=== PATIENT | male | born 1955 | race Caucasian/White ===

== ENCOUNTER → 2018-07-28 | Outpatient (CLI) | payer BC ==
[~2018-07-28] VITALS: Ht 190.5 cm; Wt 108.9 kg
[~2018-07-28] MED LIST: IMDUR 30 MG TAB30 M1 PO; LIPITOR80 MG PO; LOPRESSOR50 PO; SYNTHROID112 MC1 PO; TRAZODONE HCL50 MG PO; XANAX 0.25 MG0.25 MG PO
--- NOTE | ~2018-07-28 | CATHLAB ---
[facility] [address] [place] [address] INVASIVE PROCEDURE REPORT Name: DAVIN FRANZ Room #: [facility] [id number] Admission: 07/28/18 Attend Phys: Jose More Discharge: Date of : 57 Date of Service: 07/31/18 1656 Report #: [id number] THIS REPORT FOR: //name// APPROVED REPORT Study performed: 07/28/2018 12:55:31 Patient Details Patient Status: Out-Patient Room #: The patient is a 62 year-old male Event Personnel Jose Mcqueen [employer]ra[employer]el[employer], Jacob Curtis RN, Mary Anne Irene Sandifer, David Monitor Procedures Performed Art Access - R femoral artery* 57399 Initial Mod Sed Same Phys/QHP Gr5y [id number] Left Heart Cath w/or w/o Coronaries [id number] C Hemostasis w/ Mynx supervision of conscious sedation Indication Dyspnea, Chest pain Procedure Narrative The patient was brought electively to the Cardiac Catheterization Laboratory and was prepped and draped in a sterile manner. The Right Groin^ was infiltrated with 1% Lidocaine subcutaneous anesthesia. A PINNACLE 4FR Sheath #[id number] sheath was inserted into the RFA^. Coronary angiography was performed using coronary diagnostic catheters. The right coronary system was accessed and visualized with a JR 4 catheter. The left coronary system was accessed and visualized with a JL 4 catheter. The left ventricle was accessed and visualized with a JR 4 catheter. Left ventricular/Aortic Valve gradient assessed via catheter pullback. Left ventriculogram was performed in MARTÍNEZ projection. Closure device was deployed with a 5 Fr Mynx. The patient tolerated the procedure well and there were no complications associated with the procedure. There was no hematoma. Intraoperative Conscious Sedation Sedation start time: 13:48 Case end Time: 14:13 Fluoro Time: 2.00 minutes Dose: DAP 3035.00 cGycm2 425 mGy [facility] [place] [address] INVASIVE PROCEDURE REPORT Name: DAVIN FRANZ Room #: REG [facility]#: [id number] Admission: 07/28/18 Attend Phys: Jose More Discharge: Date of : 57 Date of Service: 07/31/18 1656 Report #: [id number] Contrast Type and Amount: Omnipaque 55 ml Coronary Angiography The patient's coronary anatomy is right dominant. Diagnostic Cath Left Main Left main is of normal origin and caliber bifurcates left anterior descending left circumflex is free of high-grade disease LAD Small moderate caliber vessel which rapidly tapers as it courses in the anterior interventricular sulcus terminating as a bifurcating vessel at the apex. In the proximal portion of the mid LAD there is a narrowing that appears to be a myocardial bridge which is a dynamic lesion noted. Prior to this first diagonal first septal perforators are free of high-grade disease. Subsequent to this the vessel rapidly tapers as it reaches the apex Diagonal 1 Small-caliber vessel without significant high-grade lesions noted Circumflex Small to moderate caliber vessel without significant obstructive lesions noted to the first marginal branch the vessel terminates in the posterior aspect of the interventricular sulcus OM1 Moderate caliber vessel which trifurcates into smaller lateral wall branches all of which are free of high-grade disease. Right Coronary Large-caliber vessel of normal origin courses in the AV groove director small marginal branches. It is free of high-grade disease as it courses posteriorly to the crux of the heart gives her through a posterior descending artery and it terminates is small has had a small to moderate caliber bifurcating posterior wall branches R PDA Moderate caliber vessel free of high-grade disease Left Ventriculography Left Ventriculography was not performed. Hemodynamics The aortic pressure is 131/79 mmHg with a mean of 104 mmHg. The left ventricular pressure is 136/20 mmHg with a mean of mmHg. The left ventricular end diastolic pressure is 27 mmHg. Conclusion 1. 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 Normal hemodynamics Recommendations [facility] [address] [place] [address] INVASIVE PROCEDURE REPORT Name: DAVIN FRANZ Room #: REG CL Alonso#: [id number] Admission: 07/28/18 Attend Phys: Jose More Discharge: Date of : 57 Date of Service: 07/31/18 1656 Report #: [id number] Cardiac Risk Reduction Program [facility] <ELECTRONICALLY SIGNED> By: Jose Mcqueen MD 07/31/181655 55 55 Jose Mcqueen MD /INF
--- NOTE | ~2018-07-28 | EKG ---
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1955 Requested By: Jose Mcqueen Order Number: [id number] MD: Bryon Chiang Measurements Intervals [place] Rate: 61 P: 40 SC: 215 QRS: 4 QRSD: 98 T: 17 QT: 415 QTc: 418 Interpretive Statements Sinus rhythm Ventricular premature complexes Borderline prolonged SC interval No previous ECG available for comparison Electronically Signed On 07-28-2018 8:50:28 COMPUTER NETWORK SUPPORT SPECIALIST by Bryon Chiang [email or web address] <ELECTRONICALLY SIGNED> By: Bryon Chiang MD, [facility] 07/28/18 0850 [id number] [id number] Bryon Chiang MD, FACC /EPI
--- NOTE | ~2018-07-28 | H ---
[facility] [place] [address] HISTORY AND PHYSICAL Name: DAVIN FRANZ Room #: REG [facility] [id number] Admission: 07/28/18 Attend Phys: Jose Mcqueen Discharge: Date of : 57 Report #: [id number] THIS REPORT FOR: //name// CC: Jose Mcqueen Kike Stubbs DATE OF SERVICE: 07/28/2018 HISTORY OF PRESENT ILLNESS: A 62-year-old gentleman seen in the office for chest pain. The patient had been having chest discomfort for several months, having undergone a perfusion scan which was deemed low risk. The patient at that point in time, though, had persistent chest discomfort, exertional in nature, substernal, radiating to the arm, the back, and the jaw. This is relieved by rest. While in the office, he described having some left arm discomfort for which sublingual nitroglycerin resolved it completely. He denied any significant orthopnea, PND, syncope or near syncope. He had been on GI regimen previously as well as blood pressure control without any improvement. The patient is now currently quite concerned because the symptoms have progressed to the point of even with minimal activity, he develops a discomfort. PHYSICAL EXAMINATION: GENERAL: Shows a well-developed white male, resting comfortably, in no acute distress. VITAL SIGNS: Noted and reviewed in the chart. HEENT: Normocephalic, atraumatic. Pupils are equal, round, reactive to light and accommodation. Extraocular muscles are intact. Sclerae and conjunctivae are anicteric. NECK: JVD is normal. Carotid upstrokes are bilaterally symmetrical. No bruits are heard. No thyromegaly. No lymphadenopathy. LUNGS: Clear to auscultation. No wheezes, rhonchi or crackles. No CVA tenderness. CARDIAC: Demonstrates a regular rhythm. Normal first and second heart sounds. No ventricular or atrial gallops, no rubs noted. No murmurs. No lifts or heaves, PMI normal. ABDOMEN: Soft, nontender, nondistended. Normal bowel sounds. EXTREMITIES: Without cyanosis, clubbing or edema. Distal pulses are intact. DTR symmetrical. NEUROLOGIC: Cranial nerves 2-12 are grossly normal and symmetrical. PSYCHIATRIC: Alert, oriented with normal affect. SKIN: Warm and dry. IMPRESSION: Exertional chest pain in an individual that has risk factors. Even though he has a negative perfusion scan, balance ischemia can be present as well as a false negative rate. I am going to proceed to cardiac catheterization in view of his risk factors, progression of symptomatology for diagnosis. The risks, complications, and alternatives of catheterization, angioplasty, [address] [address] HISTORY AND PHYSICAL Name: DAVIN FRANZ Room #: REG TERRI Gupta#: [id number] Admission: 07/28/18 Attend Phys: Jose Mcqueen Discharge: Date of : 57 Report #: [id number] conscious sedation have been discussed with the patient. He voices understanding and wishes to proceed. By: [id number] Jose Mcqueen MD /nt
--- NOTE | ~2018-07-28 | EKG ---
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 : 1955 Requested By: Jose Mcqueen Order Number: [id number] MD: Carlos Arredondo Measurements Intervals [place] Rate: 79 P: 34 OH: 215 QRS: 12 QRSD: 107 T: 34 QT: 408 QTc: 468 Interpretive Statements Sinus rhythm Ventricular premature complex Borderline prolonged [place] interval Borderline low voltage, extremity leads Abnormal R-wave progression, early transition Baseline wander in lead(s) V3 Compared to ECG 07/28/2018 08:46:34 No significant changes Electronically Signed On 07-28-2018 15:46:35 INTERNAL RECRUITER by Carlos Arredondo [email or web address] <ELECTRONICALLY SIGNED> By: Carlos Arredondo MD 07/28/18 1546 1102 1102 Carlos Arredondo MD /EPI
[2018-07-28 07:43] VITALS: BP 140/87
[2018-07-28 07:45] LABS: HEMATOCRIT 41.4 % (42.0-52.0); HEMOGLOBIN 14.6 gm/dL (14.0-18.0); MCH 30.8 pg (26.0-34.0); MCHC 35.4 g/dL (28.0-37.0); MCV 87.2 fL (80.0-100.0); RBC 4.74 mil/uL (4.50-6.00); RDW 13.5 % (10.5-14.5); WBC 6.2 thou/uL (4.0-11.0)
[2018-07-28 07:53] LABS: CALCIUM 9.8 mg/dL (8.5-10.1); CREATININE 0.9 mg/dL (0.7-1.3)
== END | disposition home or self-care (01) ==
LOC: CATH 06:16
PROVIDERS: Internal Medicine
DX: I25.10 Atherosclerotic heart disease of native coronary artery without angina pectoris (principal); I10 Essential (primary) hypertension; I48.91 Unspecified atrial fibrillation; E03.9 Hypothyroidism, unspecified; E78.5 Hyperlipidemia, unspecified; Z98.41 Cataract extraction status, right eye; Z98.42 Cataract extraction status, left eye; Z98.890 Other specified postprocedural states; Z79.899 Other long term (current) drug therapy; Z82.49 Family history of ischemic heart disease and other diseases of the circulatory system; Z87.891 Personal history of nicotine dependence; Z79.01 Long term (current) use of anticoagulants